=== PATIENT | female | born 1960 | race Caucasian/White ===

== ENCOUNTER 2016-09-13 10:19 | Day surgery (SDC) ==
[2016-09-13] MEDS ORDERED: CIPRO 400 MG/D5W 200 ML ONE (10:38)
[2016-09-13] MEDS ORDERED: NS 1,000 ML ONE (10:38)
[2016-09-13] MEDS ORDERED: MYLICON DROPS (DOSE) MISC ONE (15:00)
[2016-09-13] MEDS ORDERED: DIPRIVAN 1% ONE (15:21)
[2016-09-13] MEDS ORDERED: VERSED ONE (15:22)
[2016-09-13 15:44] VITALS: BP 125/63
[2016-09-13] MEDS ORDERED: XYLOCAINE-MPF 2% ONE (15:45)
--- NOTE | 2016-09-13 18:53 | OPERATIVE NOTE ---
PROCEDURE DATE: 09/13/2016 PROCEDURE: Esophagogastroduodenoscopy. PREOP: 1. Upper abdominal pain. 2. Elevated liver function tests. POSTOP DIAGNOSIS: Superficial anastomotic ulceration status post gastroplasty. DESCRIPTION OF PROCEDURE: After informed consent and adequate intravenous sedation the scope introduced the esophagus. The patient has a small hiatal hernia. There is bile reflux gastritis and there is a small anastomotic ulceration. The scope advanced as far as I could reach. I could not see the ampullary area. The scope is then withdrawn. The patient tolerated the procedure. Transported back to recovery in satisfactory condition.
== END 2016-09-13 16:00 | disposition home or self-care (01) ==
LOC: ENDO 10:19 → EDBD 12:30 → ENDO 16:00
PROVIDERS: ATTEND Internal Medicine Gastroenterology
DX: K25.9 Gastric ulcer, unspecified as acute or chronic, without hemorrhage or perforation (principal); K29.70 Gastritis, unspecified, without bleeding
CPT/HCPCS: J0744; J2250; J7030; Q9966